=== PATIENT | female | born 1960 | race African-American/Black ===

== ENCOUNTER 2016-10-14 21:27 | Emergency (ER) | payer BC ==
[~2016-10-14] VITALS: Ht 162.6 cm; Wt 81.7 kg
[~2016-10-14 21:27] MED LIST: ANTIVERT25 M1 PO; FOLIC ACID1 MG PO; LOSARTAN-HCTZ1 EAC2 PO; METHOTREXATE 22.5 MG PO; ONDANSETRON HCL4 M2 PO; PROTONIX40 M1 PO; TRAMADOL 50 MG50 MG PO; VALIUM5 MG PO; VITAMIN D1000 UNI1 PO; VITAMIN E100 UNI3 PO; ZOFRAN ODT4 M1 PO
[2016-10-14] MEDS ORDERED: NAPROSYN500 MG PO (22:48)
[2016-10-14 22:51] VITALS: BP 145/84
== END 2016-10-14 23:00 | disposition home or self-care (01) ==
LOC: ER 21:27
DX: S16.1XXA Strain of muscle, fascia and tendon at neck level, initial encounter (principal); I10 Essential (primary) hypertension; Z88.5 Allergy status to narcotic agent; Z88.1 Allergy status to other antibiotic agents; V43.52XA Car driver injured in collision with other type car in traffic accident, initial encounter; Y93.89 Activity, other specified; Y92.89 Other specified places as the place of occurrence of the external cause; Y99.9 Unspecified external cause status

== ENCOUNTER 2017-10-14 13:49 | Emergency (ER) | payer BC ==
[~2017-10-14] VITALS: Ht 162.6 cm; Wt 83.9 kg
[~2017-10-14 13:49] MED LIST changes: +NAPROSYN500 MG PO
[2017-10-14 14:12] LABS: URINE BILIRUBIN NEGATIVE (Negative); URINE BLOOD NEGATIVE (Negative); URINE CLARITY CLEAR; URINE COLOR YELLOW; URINE GLUCOSE-RANDOM* NEGATIVE (Negative); URINE KETONES NEGATIVE (Negative); URINE LEUKOCYTES NEGATIVE (Negative); URINE NITRITE NEGATIVE (Negative); URINE PROTEIN (DIPSTICK) NEGATIVE (Negative); URINE UROBILINOGEN 0.2 E.U./dl (0.2-1.0)
[2017-10-14] MEDS ORDERED: NORCO 5-325 TA1 EACH PO (14:53)
[2017-10-14 15:08] VITALS: BP 110/69
== END 2017-10-14 15:50 | disposition home or self-care (01) ==
LOC: ER 13:49
PROVIDERS: Emergency Medicine
DX: S13.4XXA Sprain of ligaments of cervical spine, initial encounter (principal); S16.1XXA Strain of muscle, fascia and tendon at neck level, initial encounter; M79.671 Pain in right foot; R51 Headache; M54.5 Low back pain; I10 Essential (primary) hypertension; M06.9 Rheumatoid arthritis, unspecified; Z88.5 Allergy status to narcotic agent; Z88.1 Allergy status to other antibiotic agents; V89.2XXA Person injured in unspecified motor-vehicle accident, traffic, initial encounter; Y93.I9 Activity, other involving external motion; Y92.89 Other specified places as the place of occurrence of the external cause; Y99.8 Other external cause status

== ENCOUNTER 2018-08-18 15:38 | Emergency (ER) | payer BC ==
[~2018-08-18] VITALS: Ht 162.6 cm; Wt 80.7 kg
[~2018-08-18 15:38] MED LIST changes: +NORCO 5-325 TA1 EACH PO
[2018-08-18] MEDS ORDERED: COZAAR 25 MG TA25 M1 PO (16:08)
[2018-08-18] MEDS ORDERED: LIPITOR 20 MG T20 M1 PO (16:09)
[2018-08-18] MEDS ORDERED: SIMPONI50 MG/0.5 SUBQ (16:10)
[2018-08-18 17:42] LABS: BASOPHILS 0.4 % (0.0-2.0); EOSINOPHILS 2.7 % (0.0-3.0); HEMATOCRIT 38.6 % (37.0-47.0); HEMOGLOBIN 12.6 gm/dL (12.0-15.0); LYMPHOCYTES 14.9 % (24.0-44.0); MCH 28.5 pg (26.0-34.0); MCHC 32.7 g/dL (28.0-37.0); MCV 87.1 fL (80.0-100.0); MONOCYTES 6.1 % (1.0-8.0); PLATELET COUNT 282 thou/uL (150-400); POLYS 75.9 % (36.0-66.0); RBC 4.43 mil/uL (4.20-5.00); RDW 14.9 % (10.5-14.5); WBC 5.2 thou/uL (4.0-11.0)
--- NOTE | 2018-08-18 18:27 | EKG ---
[address] [place] [address] ELECTROCARDIOGRAM REPORT Name: TRESSA AG Room #: REG ELIO Nielsen#: [id number] ������������������ Admission: 08/18/18 ������������������ Attend Phys: Discharge: ������������������ Date of : 62 Report #: [id number] ����������������������������������������������������������������� [id number] THIS REPORT FOR: //name// [facility] ED Test Date: 2018-08-18 Test Time: 17:14:11 Pat Name: TRESSA AG Department: Room: Gender: F [employer] Instruction Facilitator: [facility] : 1960 Requested By: Anurag Miranda Order Number: [id number] MD: Manuel Hernandez Measurements Intervals Martin Rate: 61 P: 47 MS: 153 QRS: 5 QRSD: 87 T: 30 QT: 429 QTc: 432 Interpretive Statements Sinus rhythm Borderline T abnormalities Compared to ECG 12/31/2014 07:38:04 No significant changes Electronically Signed On 08-18-2018 18:27:27 CDT by Manuel Hernandez [email or web address] ��������������������������������������������� <ELECTRONICALLY SIGNED> ���������������������������������������� By: Manuel Hernandez MD, [facility] ��������������������������������������������� 08/18/18 1827 1714 1714 Manuel Hernandez MD, FACC /EPI
[2018-08-18 19:15] LABS: ANION GAP 10 mmol/L (7-16); BUN 16 mg/dL (7-18); CALCIUM 8.8 mg/dL (8.5-10.1); CHLORIDE 106 mmol/L (98-107); CO2 26 mmol/L (21-32); CREATININE 0.8 mg/dL (0.6-1.0); GLUCOSE 109 mg/dL (74-106); POTASSIUM 3.7 mmol/L (3.5-5.1); SODIUM 142 mmol/L (136-145)
[2018-08-18 19:20] LABS: ALBUMIN 3.2 g/dL (3.4-5.0); MAGNESIUM 1.6 mg/dL (1.8-2.4); SGOT 13 U/L (15-37); SGPT 20 U/L (30-65); TOTAL BILIRUBIN 0.2 mg/dL (<0.1-1.0); TOTAL PROTEIN 6.9 g/dL (6.4-8.2); TROPONIN-I <0.06 ng/mL (<0.06)
[2018-08-18] MEDS ORDERED: NAPROSYN500 MG PO (19:43)
[2018-08-18 20:00] VITALS: BP 143/79
== END 2018-08-18 20:15 | disposition home or self-care (01) ==
LOC: ER 15:38
PROVIDERS: Emergency Medicine; Physician Assistant
DX: I10 Essential (primary) hypertension (principal); M06.9 Rheumatoid arthritis, unspecified; Z88.1 Allergy status to other antibiotic agents; Z88.5 Allergy status to narcotic agent